=== PATIENT | female | born 1980 | race Caucasian/White ===

== ENCOUNTER → 2016-10-08 | Outpatient (CLI) | payer OTHER ==
--- NOTE | 2016-10-08 18:40 | US ---
EXAMINATION TYPE: US venous doppler duplex LE RT DATE OF EXAM: 10/08/2016 5:57 PM COMPARISON: NONE CLINICAL HISTORY: RLE Pain M79.604. SIDE PERFORMED: Right TECHNIQUE: The lower extremity deep venous system is examined utilizing real time linear array sonog donita with graded compression, doppler sonography and color-flow sonography. VESSELS IMAGED: External Iliac Vein (EIV) Common Femoral Vein Deep Femoral Vein Greater Saphenous Vein * Femoral Vein Popliteal Vein Small Saphenous Vein * Proximal Calf Veins (* superficial vessels) Right Leg: Negative for DVT. In the area of the patient's palpable lumps, redness, and pain there are non-compressible superficial varicose veins with thready flow within. Grayscale, color doppler, spectral doppler imaging performed of the deep veins of the right lower ext remity. There is normal flow, compressibility, vascular waveforms of the right lower extremity. IMPRESSION: No ultrasound evidence for acute DVT in the right lower extremity. Thrombosed superficial varicose veins are felt present.
== END | disposition home or self-care (01) ==
LOC: RADUSMAIN 17:29
PROVIDERS: ATTEND Internal Medicine
DX: I83.811 Varicose veins of right lower extremity with pain (principal)

== ENCOUNTER 2017-09-15 15:53 | Emergency (ER) | payer OTHER ==
--- NOTE | 2017-09-15 18:31 | ED ---
Extremity Problem HPI - General Chief complaint: Extremity Problem,Nontraumatic Stated complaint: rt leg infection Time Seen by Provider: 09/15/17 17:56 Source: patient Mode of arrival: ambulatory Limitations: no limitations - History of Present Illness Initial comments: This is a 36-year-old female past medical history of previous DVT in 2003 in the right leg, vasculitis in the rt LE, gastric bypass surgery who presents today for cc of right calf pain, swelling and erythema. Pt states that thursday night she noticed a red area on the posterior calf, for the past day and a half she stated it seemed as though the area of redness was moving superior toward the right knee and the pain was increasing. She stated it felt similar to when she had a DVT or vasculitis and pt was worried so she presented to the emergency department. Pt does not take any ASA or any anticoagulants. PT denies recent fx or trauma to the right LE, chest pain, cough, dyspnea, dsypnea with exertion,hemoptysis, right calf swelling, coolness of the extremity, parathesias , tingling or loss of sensation of the right LE. Pt presented with VS stable HR 52 bpm and 100% O2 saturation. Patient denies any recent fever, chills, shortness of breath, back pain, abdominal pain, nausea or vomiting, numbness or tingling, dysuria or hematuria, constipation or diarrhea, headaches or visual changes, or any other complaints. - Related Data Home Medications Medication Instructions Recorded Confirmed Amoxic-Pot Clav 875-125Mg 1 tab PO Q12HR 09/15/17 09/15/17 [Augmentin 875-125] Allergies Allergy/AdvReac Type Severity Reaction Status Date / Time No Known Allergies Allergy Verified 09/15/17 19:33 Review of Systems ROS Statement: Those systems with pertinent positive or pertinent negative responses have been documented in the HPI. ROS Other: All systems not noted in ROS Statement are negative. Constitutional: Denies: fever, chills ENT: Denies: throat pain Respiratory: Denies: cough, dyspnea, wheezes, hemoptysis Cardiovascular: Denies: chest pain, palpitations, dyspnea on exertion, orthopnea , edema, syncope Endocrine: Denies: fatigue Gastrointestinal: Denies: abdominal pain, nausea, vomiting, diarrhea, constipation, hematemesis Genitourinary: Denies: urgency, dysuria, frequency Musculoskeletal: Reports: as per HPI, myalgia. Denies: back pain Skin: Reports: as per HPI, change in color Neurological: Denies: headache, weakness, numbness, paresthesias, confusion Past Medical History Past Medical History: No Reported History Additional Past Medical History / Comment(s): DVT 2004. Vasculitis History of Any Multi-Drug Resistant Organisms: None Reported Past Surgical History: Bariatric Surgery, Cholecystectomy Past Anesthesia/Blood Transfusion Reactions: No Reported Reaction Past Psychological History: No Psychological Hx Reported Smoking Status: Never smoker Past Alcohol Use History: None Reported Past Drug Use History: None Reported - Past Family History Father Family Medical History: Hyperlipidemia Additional Family Medical History / Comment(s): constrictive artery disease, colon ca in bladder, Mother Family Medical History: Cancer, Diabetes Mellitus Additional Family Medical History / Comment(s): skin cancer, ischemic bowel r\t scar tissue buildup General Exam - General Exam Comments Initial Comments: General: The patient is awake and alert, in no distress, and does not appear acutely ill. Eye: Pupils are equal, round and reactive to light, extra-ocular movements are intact. No nystagmus. There is normal conjunctiva bilaterally. No signs of icterus. Ears, nose, mouth and throat: There are moist mucous membranes and no oral lesions. Neck: The neck is supple, there is no tenderness or JVD. Cardiovascular: There is a regular rate and rhythm. No murmur, rub or gallop is appreciated. Respiratory: Lungs are clear to auscultation, respirations are non-labored, breath sounds are equal. No wheezes, stridor, rales, or rhonchi. Musculoskeletal: Normal ROM, no tenderness. Strength 5/5. Sensation intact. Pulses equal bilaterally 2+. Neurological: A&O x 3. CN II-XII intact, There are no obvious motor or sensory deficits. Coordination appears grossly intact. Speech is normal. Skin: Skin is warm and dry and no rashes or lesions are noted. Erythematous 12cm area of the posterior right calf. There are many varicose veins of the posterior calves b/l. There is tenderness to palpation over the area of erythema and palpable rope like veins present within the area. Psychiatric: Cooperative, appropriate mood & affect, normal judgment. Limitations: no limitations Course Vital Signs 09/15/17 09/15/17 16:48 19:52 Temperature 98.5 F 96.9 F L Pulse Rate 52 L 59 L Respiratory 16 18 Rate Blood Pressure 111/72 115/54 O2 Sat by Pulse 100 100 Oximetry Medical Decision Making - Medical Decision Making Duplex ultrasound of the right lower extremity was obtained revealing no DVT, however there is superficial venous thrombosis. Case was discussed with Dr. Lockhart. At this time we feel that the pt is stable for discharge with instruction to use OTC NSAIDS/Tylenol as needed for pain and apply warm compresses to area. Pt was instructed to f/u with pcp in 1-2 days. Pt agreed with plan and d/c in stable condition. VS stable. Disposition Clinical Impression: Acute superficial venous thrombosis of right lower extremity Disposition: HOME SELF-CARE Condition: Good Additional Instructions: Please use OTC pain medication as discussed, and apply warm compresses to the area. Please follow-up with family doctor in the next 2 days. Please return to emergency room if the symptoms increase or worsen or for any other concerns. Is patient prescribed a controlled substance at d/c from ED?: No Referrals: Emi Hill MD [Primary Care Provider] - 1-2 days Time of Disposition: 19:43
--- NOTE | 2017-09-15 19:27 | US ---
EXAMINATION TYPE: US venous doppler duplex LE RT DATE OF EXAM: 09/15/2017 7:12 PM COMPARISON: US 2017 CLINICAL HISTORY: Pain; Right medial AK to mid calf skin redness and pain at varicose veins today; pr ior right leg DVT but not on blood thinner SIDE PERFORMED: Right TECHNIQUE: The lower extremity deep venous system is examined utilizing real time linear array sonog donita with graded compression, doppler sonography and color-flow sonography. VESSELS IMAGED: Common Femoral Vein Deep Femoral Vein Greater Saphenous Vein * Femoral Vein Popliteal Vein Small Saphenous Vein * Proximal Calf Veins (* superficial vessels) Right Leg: Negative for DVT; is positive for Superficial Vein Thrombosis posteromedial right calf to above knee at patient's area of symptoms IMPRESSION: There is superficial venous thrombosis in the saphenous vein. No evidence of deep venous thrombosis.
[2017-09-15 19:53] VITALS: BP 115/54; PULSE 59; RESP 18; TEMP 96.9
== END 2017-09-15 19:52 | disposition home or self-care (01) ==
LOC: EC 15:53
DX: I82.811 Embolism and thrombosis of superficial veins of right lower extremity (principal); Z86.718 Personal history of other venous thrombosis and embolism
CPT/HCPCS: 99283

== ENCOUNTER → 2017-09-25 | Outpatient (CLI) | payer OTHER ==
--- NOTE | 2017-09-25 14:03 | US ---
EXAMINATION TYPE: US venous doppler duplex LE RT DATE OF EXAM: 09/25/2017 11:30 AM COMPARISON: 09/15/2017 CLINICAL HISTORY: M79.604 PAIN OF RT LE. Known superficial clot in right leg. Pain worsening SIDE PERFORMED: Right TECHNIQUE: The lower extremity deep venous system is examined utilizing real time linear array sonog donita with graded compression, doppler sonography and color-flow sonography. VESSELS IMAGED: External Iliac Vein (EIV) Common Femoral Vein Deep Femoral Vein Greater Saphenous Vein * Femoral Vein Popliteal Vein Small Saphenous Vein * Proximal Calf Veins (* superficial vessels) Grayscale, color doppler, spectral doppler imaging performed of the deep veins of the right lower ext remity. There is normal flow, compressibility, vascular waveforms. Right Leg: Negative for DVT. Positive for SVT in the right GSV from above the knee to the right mid calf. Appears unchanged from previous exam 09/15/2017. IMPRESSION: 1. No evidence of deep venous thrombosis within the right lower extremity. 2. Redemonstration of superficial venous thrombosis as seen on the prior of 09/15/[address] saphenous vein.
== END | disposition home or self-care (01) ==
LOC: RADUSWWP 11:08
PROVIDERS: ATTEND Internal Medicine
DX: I82.811 Embolism and thrombosis of superficial veins of right lower extremity (principal)

== ENCOUNTER 2018-09-06 07:55 | Emergency (ER) | payer BC, OTHER ==
[2018-09-06] MEDS ORDERED: diphenhydrAMINE 50 MG/ML 1 ML VIAL IVP STA (08:31)
[2018-09-06] MEDS ORDERED: FAMOTIDINE 20 MG/2 ML VIAL IV STA (08:31)
[2018-09-06] MEDS ORDERED: methylPREDNISolone SOD SUCCI 125 MG/2 ML VIAL IV STA (08:31)
--- NOTE | 2018-09-06 08:45 | ED ---
Skin/Abscess/FB HPI - General Chief complaint: Skin/Abscess/Foreign Body Stated complaint: rash Time Seen by Provider: 09/06/18 08:06 Source: patient, RN notes reviewed, old records reviewed Mode of arrival: ambulatory Limitations: no limitations - History of Present Illness Initial comments: Patient is a 29-year-old female process brace arm today with concern for bilateral buttocks. Patient reports that symptoms started on Thursday. She went to her PCP and was placed on Bactrim. She reports that it is not improved since being on the antibiotic for 5 days. She complaint of being pruritic. She denies any fevers or chills. She states today that she was in the shower started feeling her heart was racing somewhat weak and dizzy so she came to the emergency department. Patient states that it feels that her skin is on fire. She denies any associated history of resistant skin infections. She reports she's had this in the past. - Related Data Home Medications Medication Instructions Recorded Confirmed Ergocalciferol [Vitamin D2] 50,000 unit PO Q30D 09/06/18 09/06/18 Sulfamethox-Tmp 800-160Mg [Bactrim 1 tab PO Q12HR 09/06/18 09/06/18 DS 800-160 mg] Previous Rx's Medication Instructions Recorded Famotidine [Pepcid] 40 mg PO BID #12 tab 09/06/18 diphenhydrAMINE [Benadryl] 25 mg PO QID PRN #20 capsule 09/06/18 predniSONE 60 mg PO DIRECTED #18 tab 09/06/18 Allergies Allergy/AdvReac Type Severity Reaction Status Date / Time No Known Allergies Allergy Verified 09/06/18 08:05 Review of Systems ROS Statement: Those systems with pertinent positive or pertinent negative responses have been documented in the HPI. ROS Other: All systems not noted in ROS Statement are negative. Past Medical History Past Medical History: No Reported History Additional Past Medical History / Comment(s): DVT 2003. Vasculitis History of Any Multi-Drug Resistant Organisms: None Reported Past Surgical History: Bariatric Surgery, Cholecystectomy Past Anesthesia/Blood Transfusion Reactions: No Reported Reaction Past Psychological History: No Psychological Hx Reported Smoking Status: Never smoker Past Alcohol Use History: None Reported Past Drug Use History: None Reported - Past Family History Father Family Medical History: Hyperlipidemia Additional Family Medical History / Comment(s): constrictive artery disease, colon ca in bladder, Mother Family Medical History: Cancer, Diabetes Mellitus Additional Family Medical History / Comment(s): skin cancer, ischemic bowel r\t scar tissue buildup General Exam - General Exam Comments Initial Comments: 37-year-old female. Alert and oriented 3. No significant distress. General: Well appearing, well nourished, in no distress. Oriented x 3, normal mood and affect . Ambulating without difficulty. Skin: Good turgor, erythematous large macular area over patient's buttocks and thigh. Hair: Normal texture and distribution. HEENT: Head: Normocephalic, atraumatic, no visible or palpable masses, depressions, or scaring. Eyes: Visual acuity intact, conjunctiva clear, sclera non-icteric, EOM intact, PERRL. Ears: EACs clear, TMs translucent & cone of light visualized. hearing intact. Nose: No external lesions, mucosa non-inflamed, septum and turbinates normal Mouth: Mucous membranes moist, no mucosal lesions. Teeth/Gums: No obvious caries or periodontal disease. No gingival inflammation or significant resorption. Pharynx: Mucosa non-inflamed, no tonsillar hypertrophy or exudate Neck: Supple, without lesions, bruits, or adenopathy, thyroid non-enlarged and non-tender Heart: No cardiomegaly or thrills; regular rate and rhythm, no murmur or gallop Lungs: Clear to auscultation and percussion Abdomen: Bowel sounds normal, no tenderness, organomegaly, masses, or hernia Back: Spine normal without deformity or tenderness, no CVA tenderness Extremities: No amputations or deformities, cyanosis, edema or varicosities, peripheral pulses intact Musculoskeletal: Normal gait and station. No misalignment, asymmetry, crepitation, defects, tenderness, masses, effusions, decreased range of motion, instability, atrophy or abnormal strength or tone in the head, neck, spine, ribs, pelvis or extremities. Neurologic: CN 2-12 normal. Sensation to pain, touch, and proprioception normal. DTRs normal in upper and lower extremities. No pathologic reflexes. Psychiatric: Oriented X3, intact recent and remote memory, judgment and insight, normal mood and affect. Limitations: no limitations Course Vital Signs 09/06/18 07:56 Temperature 98.7 F Pulse Rate 63 Respiratory 16 Rate Blood Pressure 117/54 O2 Sat by Pulse 100 Oximetry Medical Decision Making - Medical Decision Making 2-year-old female presents with a large pruritic rash over her ducts and signs or thighs. Appears over his Patient is sitting. She denies any contacts or exposures. She states this happened once before. She states it seems to be he at rash. Patient was seen by her PCP and was started on Bactrim 5 days ago but the area continues to worsen. She denies any fevers or chills. Patient is having seems to have more of an ALLERGIC reaction type of response causing this rash. Due to the hospital is highly started to check some blood work. Her white blood cell count is normal vital signs are stable. Again I think this is related to ALLERGIC reaction type of rash or contacts or otitis. Patient will be started on steroids Benadryl Pepcid. On reevaluation after seeing those medications to the IV she does have a diminished appearance of her rash. I discussed that she should have close follow-up with her primary care doctor and monitor the area of rash. I discussed she can continue the Bactrim at this time however Patient should be cautious as this is likely on affecting the rash at this time. Patient understands treatment plan will comply. Return parameters were discussed. - Lab Data Result diagrams: 09/06/18 08:44 09/06/18 08:44 Lab Results 09/06/18 09/06/18 Range/Units 08:44 08:44 WBC 6.4 (3.8-10.6) k/uL RBC 4.39 (3.80-5.40) m/uL Hgb 11.4 (11.4-16.0) gm/dL Hct 35.4 (34.0-46.0) % MCV 80.7 (80.0-100.0) fL MCH 25.9 (25.0-35.0) pg MCHC 32.1 (31.0-37.0) g/dL RDW 15.0 (11.5-15.5) % Plt Count 213 (150-450) k/uL Neutrophils % 76 % Lymphocytes % 14 % Monocytes % 4 % Eosinophils % 5 % Basophils % 0 % Neutrophils # 4.9 (1.3-7.7) k/uL Lymphocytes # 0.9 L (1.0-4.8) k/uL Monocytes # 0.3 (0-1.0) k/uL Eosinophils # 0.3 (0-0.7) k/uL Basophils # 0.0 (0-0.2) k/uL Hypochromasia Slight Sodium 138 (137-145) mmol/L Potassium 4.2 (3.5-5.1) mmol/L Chloride 107 (98-107) mmol/L Carbon Dioxide 24 (22-30) mmol/L Anion Gap 7 mmol/L BUN 13 (7-17) mg/dL Creatinine 0.78 (0.52-1.04) mg/dL Est GFR (CKD-EPI)AfAm >90 (>60 ml/min/1.73 sqM) Est GFR (CKD-EPI)NonAf >90 (>60 ml/min/1.73 sqM) Glucose 96 (74-99) mg/dL Calcium 8.8 (8.4-10.2) mg/dL Total Bilirubin 0.8 (0.2-1.3) mg/dL AST 28 (14-36) U/L ALT 28 (9-52) U/L Alkaline Phosphatase 72 (38-126) U/L Total Protein 6.8 (6.3-8.2) g/dL Albumin 3.9 (3.5-5.0) g/dL Disposition Clinical Impression: Rash and nonspecific skin eruption Disposition: HOME SELF-CARE Condition: Good Instructions (If sedation given, give patient instructions): Urticaria (ED) Additional Instructions: Patient advised to continue to use hydrocortisone cream over the area. Take the steroids, Pepcid and Benadryl as prescribed. Patient should've close follow-up with primary care physician. Prescriptions: diphenhydrAMINE [Benadryl] 25 mg PO QID PRN #20 capsule PRN Reason: Itching Famotidine [Pepcid] 40 mg PO BID #12 tab predniSONE 60 mg PO DIRECTED #18 tab Is patient prescribed a controlled substance at d/c from ED?: No Referrals: Emi Hill MD [Primary Care Provider] - 1-2 days Time of Disposition: 10:10
[2018-09-06 09:19] LABS: Basophils % (A) 0 %; Eosinophils # (A) 0.3 k/uL (0-0.7); Eosinophils % (A) 5 %; HCT 35.4 % (34.0-46.0); HGB 11.4 gm/dL (11.4-16.0); Hypochromasia Slight; Lymphocytes # (A) 0.9 k/uL (1.0-4.8); Lymphocytes % (A) 14 %; MCH 25.9 pg (25.0-35.0); MCHC 32.1 g/dL (31.0-37.0); MCV 80.7 fL (80.0-100.0); Mean Platelet Volume 7.7; Monocytes # (A) 0.3 k/uL (0-1.0); Monocytes % (A) 4 %; Neutrophils # (A) 4.9 k/uL (1.3-7.7); Neutrophils % (A) 76 %; Platelet Count 213 k/uL (150-450); RBC 4.39 m/uL (3.80-5.40); WBC 6.4 k/uL (3.8-10.6)
[2018-09-06 09:29] LABS: ALT 28 U/L (9-52); AST 28 U/L (14-36); African American GFR (CKD) >90 (>60 ml/min/1.73 sqM); Albumin 3.9 g/dL (3.5-5.0); Alkaline Phosphatase 72 U/L (38-126); Anion Gap 7 mmol/L; Blood Urea Nitrogen 13 mg/dL (7-17); Calcium 8.8 mg/dL (8.4-10.2); Carbon Dioxide 24 mmol/L (22-30); Chloride 107 mmol/L (98-107); Glucose 96 mg/dL (74-99); Potassium 4.2 mmol/L (3.5-5.1); Sodium 138 mmol/L (137-145); Total Bilirubin 0.8 mg/dL (0.2-1.3); Total Protein 6.8 g/dL (6.3-8.2)
[2018-09-06 10:39] VITALS: BP 106/54; PULSE 56; RESP 18; TEMP 98
== END 2018-09-06 10:38 | disposition home or self-care (01) ==
LOC: EC 07:55
DX: R21 Rash and other nonspecific skin eruption (principal); R42 Dizziness and giddiness; Z86.718 Personal history of other venous thrombosis and embolism; Z98.84 Bariatric surgery status
CPT/HCPCS: 36415; 80053; 85025; 99283; 96374; 96375 ×2; J1200; J2930

== ENCOUNTER → 2018-10-01 | Outpatient (CLI) | payer BC ==
[2018-10-01 14:11] VITALS: BP 107/73; PULSE 51; RESP 16; TEMP 97.8; BMI 34.4
--- NOTE | 2018-10-01 15:12 | P.GSHP ---
History of Present Illness H&P Date: 10/01/18 Chief Complaint: Right nipple discharge The patient is a 37-year-old white female with a complaint of one month right nipple discharge. The color was black in nature. The patient has no history of any trauma or infection in her breast. She does not feel any masses or lumps in her breasts. She has no nipple discharge on the left side. Cystoscopy never had anything like this in the past. She had a bilateral mammogram performed on 09-17-18, an ultrasound was recommended. She has been done on the results are pending. Mammogram did not show any specific lesions of concern. The discharge is nonspontaneous. She did have her nipples pierced in her mid 20s and she noted for discharge when she was cleaning the area of the piercing. She drinks diet Coke daily. She does not drink any tea or coffee. She does not smoke and is not exposed to secondhand smoke. She is chocolate occasionally. Discharge is not cyclical related to her period. Family history: maternal grandfather: pancreatic cancer mother: skin cancer brother: skin cancer father: colon cancer into bladder Hormonal history: Menarche: 10 , 2 miscarrages, breast fed: yes, first born at 30 BCP: no hormones: no Past surgical history: 1. gastric bypass lost 160 pounds 2. Cholecystectomy 3. Stent following cholecystectomy for bile duct leak, stint removed in 2016 this was done via surgery secondary to difficulty removing it because of the gastric bypass Medical history: 1.none Social History: smoke: none alcohol: occasional drugs: none - Constitutional Constitutional: Reports sweats - EENT Eyes: denies blurred vision, denies pain Ears: right: decreased hearing, bilateral: tinnitus Ears, nose, mouth and throat: Reports headache, Reports sore throat - Breasts Breasts: bilateral: as per HPI - Cardiovascular Cardiovascular: Denies chest pain, Denies shortness of breath - Respiratory Respiratory: Denies cough, Denies 7 - Gastrointestinal Gastrointestinal: Reports as per HPI - Genitourinary (Female) Genitourinary: Denies dysuria, Denies hematuria - Menstruation Menstruation: Reports period normal - Musculoskeletal Musculoskeletal: Denies myalgias - Integumentary Comment: eczema Integumentary: Reports rash - Neurological Neurological: Denies numbness, Denies weakness - Psychiatric Psychiatric: Denies anxiety, Denies depression - Endocrine Endocrine: Denies fatigue, Denies weight change - Hematologic/Lymphatic Comment: none, phlebitis in her right leg last summer, was taking 81 mg aspirin at that time - Allergic/Immunologic Allergic/Immunologic: Reports seasonal allergies Past Medical History Past Medical History: No Reported History Additional Past Medical History / Comment(s): DVT 2003. Vasculitis History of Any Multi-Drug Resistant Organisms: None Reported Past Surgical History: Bariatric Surgery, Cholecystectomy Past Anesthesia/Blood Transfusion Reactions: No Reported Reaction Past Psychological History: No Psychological Hx Reported Smoking Status: Never smoker Past Alcohol Use History: None Reported Past Drug Use History: None Reported - Past Family History Father Family Medical History: Hyperlipidemia Additional Family Medical History / Comment(s): constrictive artery disease, colon ca in bladder, Mother Family Medical History: Cancer, Diabetes Mellitus Additional Family Medical History / Comment(s): skin cancer, ischemic bowel r\t scar tissue buildup Medications and Allergies Home Medications Medication Instructions Recorded Confirmed Type Ergocalciferol [Vitamin D2] 50,000 unit PO Q30D 09/06/18 10/01/18 History Amoxicillin 875 mg PO Q12HR 10/01/18 10/01/18 History Allergies Allergy/AdvReac Type Severity Reaction Status Date / Time No Known Allergies Allergy Verified 10/01/18 14:04 Surgical - Exam Vital Signs Temp Pulse Resp BP Pulse Ox 97.8 F 51 L 16 107/73 100 10/01/18 14:06 10/01/18 14:06 10/01/18 14:06 10/01/18 14:06 10/01/18 14:06 - General well developed, well nourished, no distress - Eyes normal ocular movement - ENT no hearing loss, no congestion - Neck no masses, trachea midline - Respiratory normal respiratory effort, clear to auscultation - Cardiovascular Rhythm: regular Heart Sounds: normal: S1, S2 - Abdomen Abdomen: soft, non tender, no guarding, no rigid, no rebound - Integumentary normal turgor - Neurologic no disoriented, no combative - Musculoskeletal normal gait, normal posture - Psychiatric oriented to time, oriented to person, oriented to place, speech is normal, memory intact Breast examination: Right breast: Multi-positional exam fibrocystic breast changes patient has nipple discharge at the 12 o'clock position, there were 2 sites of discharge 1 is clear and one is bluish green guaiac of the sinus is negative for blood Right axilla: No adenopathy of concern Left breast: Multi-positional exam fibrocystic changes no dominant masses or nodules of concern no nipple discharge Left axilla: No adenopathy of concern Patient has healed scars from bilateral nipple piercings in the past Results Mammogram results reviewed, ultrasound results pending Assessment and Plan Assessment: Impression: 1. Nipple discharge right breast, believed to be fibrocystic the areas guaiac and negative 2. Fibrocystic breast changes 3. Family history of cancer 4. Patient status post gastric bypass surgery has lost 160 pounds 5. Some persistent irritation at bilateral nipple piercing sites Plan: 1. Continue present care of nipple piercing sites 2. believe the discharge is fibrocystic in nature will encourage the patient to decrease caffeine intake 3. Obtain ultrasound report from the right breast 4. follow up in 4 months Cc: Dr. Hill
== END | disposition home or self-care (01) ==
LOC: WWCWWP 13:55
PROVIDERS: ATTEND Surgery
DX: Z53.9 Procedure and treatment not carried out, unspecified reason (principal)

== ENCOUNTER → 2019-10-21 | Outpatient (CLI) | payer BC ==
[2019-10-21 10:07] VITALS: BP 117/79; PULSE 58; RESP 18; TEMP 98.8
--- NOTE | 2019-10-21 10:33 | P.PN ---
Subjective Progress Note Date: 10/21/19 Principal diagnosis: nipple discharge The patient is a 38-year-old white female with a complaint of one month right nipple discharge when seen initially on . The color was black in nature. The patient had no history of any trauma or infection in her breast. She did not feel any masses or lumps in her breasts. She had no nipple discharge on the left side. She had never had anything like this in the past. She had a bilateral mammogram performed on 09-17-18, an ultrasound was recommended. Mammogram did not show any specific lesions of concern. The discharge is nonspontaneous, only with squeezing. She did have her nipples pierced in her mid 20s and she noted for discharge when she was cleaning the area of the piercing. Approximately year ago she was drinking Coke daily and she decreased the amount of caffeine intake. Since then she has noted decreased drainage but it is still present. Now it appears to be from a different site at the nipple areolar complex and is changed in color. There is red discharge from the bottom and black discharge comes out at the top. She had a bilateral mammogram performed on . This was benign however secondary to the discharge in the right breast and ultrasound was performed which was also felt to be benign BIRADS 2 and repeat radiographs in 1 year were recommended. She drinks diet Coke daily. She does not drink any tea or coffee. Drinks one a day as opposed to drinking all day long Nicotine: Negative Chocolate: Occasional Discharge is not cyclical related to her period. Procedure post: Negative Hormones: Negative Family history: maternal grandfather: pancreatic cancer mother: skin cancer brother: skin cancer father: colon cancer into bladder Hormonal history: Menarche: 10 , 2 miscarrages, breast fed: yes, first born at 30 BCP: no hormones: no Past surgical history: 1. gastric bypass lost 160 pounds 2. Cholecystectomy 3. Stent following cholecystectomy for bile duct leak, stint removed in 2016 this was done via surgery secondary to difficulty removing it because of the gastric bypass Medical history: 1.none Social History: smoke: none alcohol: occasional drugs: none - Constitutional Constitutional: Reports sweats - EENT Eyes: denies blurred vision, denies pain Ears: right: decreased hearing, bilateral: tinnitus Ears, nose, mouth and throat: Reports migraine headaches, Reports sore throat - Breasts Breasts: bilateral: as per HPI - Cardiovascular Cardiovascular: Denies chest pain, Denies shortness of breath - Respiratory Respiratory: Denies cough, - Gastrointestinal Gastrointestinal: Reports as per HPI, diahrea - Genitourinary (Female) Genitourinary: Denies dysuria, Denies hematuria - Menstruation Menstruation: Reports period normal - Musculoskeletal Musculoskeletal: Denies myalgias - Integumentary Comment: Integumentary: Reports rash at times from detergents - Neurological Neurological: Denies numbness, Denies weakness - Psychiatric Psychiatric: Denies anxiety, Denies depression - Endocrine Endocrine: Denies fatigue, Denies weight change - Hematologic/Lymphatic Comment: none, phlebitis in her right leg last summer, was taking 81 mg aspirin at that time - Allergic/Immunologic Allergic/Immunologic: Reports seasonal allergies Objective - Vital Signs Vital signs: Vital Signs Temp 98.8 F 10/21/19 10:01 Pulse 58 L 10/21/19 10:01 Resp 18 10/21/19 10:01 BP 117/79 10/21/19 10:01 Pulse Ox 100 10/21/19 10:01 Intake & Output 10/20/19 10/21/19 10/21/19 18:59 06:59 18:59 Weight 105.233 kg - Exam BMI 34.3 - Constitutional General appearance: Present: obese - EENT Eyes: Present: EOMI ENT: Present: hearing grossly normal - Neck Neck: Present: normal ROM - Respiratory Respiratory: bilateral: CTA - Cardiovascular Rhythm: regular Heart sounds: normal: S1, S2 - Gastrointestinal General gastrointestinal: Present: normal bowel sounds, soft - Integumentary Integumentary: Present: normal turgor - Musculoskeletal Musculoskeletal: Present: gait normal - Psychiatric Psychiatric: Present: A&O x's 3, appropriate affect, intact judgment & insight - Additional findings Additional findings: breast exam: BRA 38C inspection: Bilateral grade 3 ptosis Right breast: Multi-positional exam fibrocystic changes, the patient has discharge from the 12:00 nipple duct region as well as the 7:00 duct region that at the 12:00 region is black in nature and at the 7:00 is red Right atrial: No axillary adenopathy of concern Left breast: Multi-positional exam no dominant masses or nodules of concern fibrocystic changes Left axilla: No adenopathy of concern guiac testing of the discharge from the right breast at 12:00 was positive for blood, at 7:00 there was not enough fluid to obtain to do a test although it appeared to be red in nature Assessment and Plan Assessment: Impression: 1. Bloody nipple discharge right breast at 2 sites 12:00 and 7:00 2. Migraine headaches 3. Patient does drink caffeine Plan: 1. Duct exploration right breast of 2 sites 12:00 and 7:00 Risks and benefits of duct exploration discussed with the patient. This may well still be fibrocystic disease however it is guaiac positive. The patient understands and wishes to proceed. Cc: Dr. Hill encounter 20 minutes, > 50% of time in planning and counselling
== END | disposition home or self-care (01) ==
LOC: WWCWWP 09:56
PROVIDERS: ATTEND Surgery
DX: Z53.9 Procedure and treatment not carried out, unspecified reason (principal)

== ENCOUNTER → 2019-11-25 | Outpatient (CLI) | payer BC ==
--- NOTE | 2019-11-25 12:08 | MM ---
Reason for exam: additional evaluation requested from prior study. Last mammogram was performed 1 year and 2 months ago. History: Patient had first child at age 30. Physical Findings: Nurse did not find any significant physical abnormalities on exam. MG 3D Diag Mammo W/Cad MIGUEL Bilateral CC and MLO view(s) were taken. Prior study comparison: September 17, 2018, mammogram. The breast tissue is heterogeneously dense. This may lower the sensitivity of mammography. Focal asymmetry left upper outer middle breast. These results were verbally communicated with the patient and result sheet given to the patient on 11/25/19. ASSESSMENT: Incomplete: need additional imaging evaluation, BI-RAD 0 RECOMMENDATION: Ultrasound of the right breast.
--- NOTE | 2019-11-25 12:09 | USB ---
Reason for exam: additional evaluation requested from abnormal screening. History: Patient had first child at age 30. US Breast RT Right complete breast ultrasound includes all four quadrants, the retroareolar region and axilla. Finding demonstrates normal appearing ducts. No obvious filling defects. These results were verbally communicated with the patient and result sheet given to the patient on 11/25/19. ASSESSMENT: Benign, BI-RAD 2 RECOMMENDATION: Follow-up diagnostic mammogram of both breasts in 1 year. Manage patient on a clinical basis.
== END | disposition home or self-care (01) ==
LOC: RADMAMWWP 10:32
PROVIDERS: ATTEND Surgery
DX: N64.52 Nipple discharge (principal)
CPT/HCPCS: 77062; 77066

== ENCOUNTER → 2019-12-08 | Outpatient (CLI) | payer BC ==
[2019-12-08 11:27] VITALS: BP 119/77; PULSE 50; RESP 12; TEMP 98.6
--- NOTE | 2019-12-08 12:03 | P.PN ---
Subjective Progress Note Date: 12/08/19 Principal diagnosis: bloody nipple discharge nipple discharge The patient is a 38-year-old white female with a complaint of 1 year right nipple discharge when seen initially on . The color was black in nature. The patient had no history of any trauma or infection in her breast. She did not feel any masses or lumps in her breasts. She had no nipple discharge on the left side. She had never had anything like this in the past. She had a bilateral mammogram on 920 520 as well as a right breast ultrasound. These were benign BIRADS 2 and repeat bilateral mammogram in 1 year was recommended. Mammogram did not show any specific lesions of concern. The discharge is nonspontaneous, only with squeezing. She did have her nipples pierced in her mid 20s and she noted for discharge when she was cleaning the area of the piercing. Approximately year ago she was drinking Coke daily and she decreased the amount of caffeine intake. Does not drink any at this time. Since then she has noted decreased drainage but it is still present. Now it appears to be from a different site at the nipple areolar complex and is changed in color. There is red discharge from the bottom and black discharge comes out at the top. She had guiac testing of the 12:00 nipple discharge on the right on her last visit which was positive, and 7:00 there was not enough fluid to test, at this time she states is nothing coming out at the bottom. She drinks diet Coke daily. She does not drink any tea or coffee. Drinks one a day as opposed to drinking all day long Nicotine: Negative Chocolate: Occasional Discharge is not cyclical related to her period. Procedure post: Negative Hormones: Negative Family history: maternal grandfather: pancreatic cancer mother: skin cancer brother: skin cancer father: colon cancer into bladder Hormonal history: Menarche: 10 , 2 miscarrages, breast fed: yes, first born at 30 BCP: no hormones: no Past surgical history: 1. gastric bypass lost 160 pounds 2. Cholecystectomy 3. Stent following cholecystectomy for bile duct leak, stint removed in 2016 this was done via surgery secondary to difficulty removing it because of the gastric bypass Medical history: 1. patient recently started on vitamin D Social History: smoke: none alcohol: occasional drugs: none - Constitutional Constitutional: Reports sweats - EENT Eyes: denies blurred vision, denies pain Ears: right: decreased hearing, bilateral: tinnitus Ears, nose, mouth and throat: Reports migraine headaches, Reports sore throat - Breasts Breasts: bilateral: as per HPI - Cardiovascular Cardiovascular: Denies chest pain, Denies shortness of breath - Respiratory Respiratory: Denies cough, - Gastrointestinal Gastrointestinal: Reports as per HPI, diarrhea - Genitourinary (Female) Genitourinary: Denies dysuria, Denies hematuria - Menstruation Menstruation: Reports period normal - Musculoskeletal Musculoskeletal: Denies myalgias - Integumentary Comment: Integumentary: Reports rash at times from detergents - Neurological Neurological: Denies numbness, Denies weakness - Psychiatric Psychiatric: Denies anxiety, Denies depression - Endocrine Endocrine: Denies fatigue, Denies weight change - Hematologic/Lymphatic Comment: none, phlebitis in her right leg last summer, was taking 81 mg aspirin at that time - Allergic/Immunologic Allergic/Immunologic: Reports seasonal allergies Objective - Vital Signs Vital signs: Vital Signs Temp 98.6 F 12/08/19 11:19 Pulse 50 L 12/08/19 11:19 Resp 12 12/08/19 11:19 BP 119/77 12/08/19 11:19 Pulse Ox 100 12/08/19 11:19 Intake & Output 12/07/19 12/08/19 12/08/19 18:59 06:59 18:59 Weight 108.862 kg - Exam BMI 34.4 - Constitutional General appearance: Present: average body habitus - EENT Eyes: Present: EOMI ENT: Present: hearing grossly normal - Neck Neck: Present: normal ROM - Respiratory Respiratory: bilateral: CTA - Cardiovascular Rhythm: regular Heart sounds: normal: S1, S2 - Gastrointestinal General gastrointestinal: Present: normal bowel sounds, soft - Integumentary Integumentary: Present: normal turgor - Musculoskeletal Musculoskeletal: Present: gait normal - Psychiatric Psychiatric: Present: A&O x's 3, appropriate affect, intact judgment & insight - Additional findings Additional findings: breast exam: BRA 38 C inspection:bilateral grade 3 ptosis palpation: right breast: Multi-positional exam fibrocystic changes, patient has discharge from the 12:00 nipple duct region; guaiac was done of this and it appears to be blue/green in nature Right axilla: No adenopathy of concern Left breast: Multi-positional exam a dominant masses or nodules of concern fibrocystic changes Left axilla: No adenopathy of concern Assessment and Plan Assessment: Impression: Impression: 1. Bloody nipple discharge right breast at 12:00 site 2. Migraine headaches Plan: 1. Duct exploration right breast at 12:00 at this time she is not having any discharge at the 7 o'clock position Risk and benefits of duct exploration were discussed with the patient. This may well be fibrocystic disease however it was felt to be guaiac positive on examination. The patient understands and wishes to proceed. Cc: Dr. Hill Encounter 15 minutes > 50% of time on planning and counselling
== END | disposition home or self-care (01) ==
LOC: WWCWWP 10:44
PROVIDERS: ATTEND Surgery
DX: Z53.9 Procedure and treatment not carried out, unspecified reason (principal)

== ENCOUNTER → 2020-02-03 | Outpatient (CLI) | payer BC ==
[2020-02-03 11:15] VITALS: BP 109/74; PULSE 51; RESP 18; TEMP 98.1
--- NOTE | 2020-02-03 11:36 | P.PN ---
Subjective Progress Note Date: 02/03/20 Principal diagnosis: bloody nipple discharge bloody nipple discharge nipple discharge The patient is a 38-year-old white female with a complaint of 1 year right nipple discharge when seen initially on . The color was black in nature. The patient had no history of any trauma or infection in her breast. She did not feel any masses or lumps in her breasts. She had no nipple discharge on the left side. She had never had anything like this in the past. She had a b ilateral mammogram on as well as a right breast ultrasound. These were benign BIRADS 2 and repeat bilateral mammogram in 1 year was recommended. Mammogram did not show any specific lesions of concern. The discharge is nonspontaneous, only with squeezing. She did have her nipples pierced in her mid 20s and she noted for discharge when she was cleaning the area of the piercing. Approximately year ago she was drinking Coke daily and she decreased the amount of caffeine intake. Does not drink any at this time. Since then she has noted decreased drainage but it is still present. Now it appears to be from a different site at the nipple areolar complex and is changed in color. There is red discharge from the bottom and black discharge comes out at the top. She had guiac testing of the 12:00 nipple discharge on the right on her last visit which was positive, and 7:00 there was not enough fluid to test, at this time she states is nothing coming out at the bottom. She drinks diet Coke daily. She does not drink any tea or coffee. Drinks one a day as opposed to drinking all day long Nicotine: Negative Chocolate: Occasional Discharge is not cyclical related to her period. Procedure post: Negative Hormones: Negative Family history: maternal grandfather: pancreatic cancer mother: skin cancer brother: skin cancer father: colon cancer into bladder Hormonal history: Menarche: 10 , 2 miscarrages, breast fed: yes, first born at 30 BCP: no hormones: no Past surgical history: 1. gastric bypass lost 160 pounds 2. Cholecystectomy 3. Stent following cholecystectomy for bile duct leak, stint removed in 2016 this was done via surgery secondary to difficulty removing it because of the gastric bypass Medical history: 1. patient recently started on vitamin D Social History: smoke: none alcohol: occasional drugs: none - Constitutional Constitutional: Reports sweats - EENT Eyes: denies blurred vision, denies pain Ears: right: decreased hearing, bilateral: tinnitus Ears, nose, mouth and throat: Reports migraine headaches, Reports sore throat - Breasts Breasts: bilateral: as per HPI - Cardiovascular Cardiovascular: Denies chest pain, Denies shortness of breath - Respiratory Respiratory: Denies cough, - Gastrointestinal Gastrointestinal: Reports as per HPI, diarrhea - Genitourinary (Female) Genitourinary: Denies dysuria, Denies hematuria - Menstruation Menstruation: Reports period normal - Musculoskeletal Musculoskeletal: Denies myalgias - Integumentary Comment: Integumentary: Reports rash at times from detergents - Neurological Neurological: Denies numbness, Denies weakness - Psychiatric Psychiatric: Denies anxiety, Denies depression - Endocrine Endocrine: Denies fatigue, Denies weight change - Hematologic/Lymphatic Comment: none, phlebitis in her right leg last summer, was taking 81 mg aspirin at that time - Allergic/Immunologic Allergic/Immunologic: Reports seasonal allergies Objective - Vital Signs Vital signs: Intake & Output 02/02/20 02/03/20 02/03/20 18:59 06:59 18:59 Weight 99.79 kg - Exam BMI 31.6 - Constitutional General appearance: Present: average body habitus - EENT Eyes: Present: EOMI ENT: Present: hearing grossly normal - Neck Neck: Present: normal ROM - Respiratory Respiratory: bilateral: CTA - Cardiovascular Rhythm: regular Heart sounds: normal: S1, S2 - Gastrointestinal General gastrointestinal: Present: normal bowel sounds, soft - Integumentary Integumentary: Present: normal turgor - Musculoskeletal Musculoskeletal: Present: gait normal - Psychiatric Psychiatric: Present: A&O x's 3, appropriate affect, intact judgment & insight - Additional findings Additional findings: Breast exam: Bra 38C inspection: bilateral grade 3 ptosis palpation: right breast: Multiple positional exam no dominant masses or nodules of concern, there is discharge at the 12 o'clock position which is dark in nature and guaiac positive Right axilla: No adenopathy of concern Left breast: Multiple positional exam no dominant masses or nodules of concern Left axilla: No adenopathy of concern On inspection the right nipple areolar complex is grade 3 ptosis but higher than the left complex. She and her understand this and despite this would likely suture to be done via mastopexy incision. Assessment and Plan Assessment: Impression: 1. Bloody nipple discharge right breast 12:00 2. Recent bilateral mammogram on 920 520 resulted in right breast ultrasound which was benign BIRADS 2 no lesions of concern were noted in either breast Plan: 1. Right breast duct exploration, this will be done via a crescent mastopexy incision Risks and benefits of the procedure were discussed with the patient. Risks include but are not limited to bleeding, infection, reaction to the anesthetic. There will be asymmetry between in the periareolar location on the right and left breasts. The patient and her understand this and wish to proceed with a crescent mastopexy incision. Additionally the understand that insurance may or may not cover the mastopexy portion of the procedure. CC: DR. Hill encounter 30 minutes,> 50% of tiem in planning and counselling
== END | disposition home or self-care (01) ==
LOC: WWCWWP 11:02
PROVIDERS: ATTEND Surgery
DX: Z53.9 Procedure and treatment not carried out, unspecified reason (principal)

== ENCOUNTER 2020-02-07 09:09 | Day surgery (SDC) | payer BC ==
[2020-02-02 15:54] VITALS: BMI 31.5
[~2020-02-07 09:09] MED LIST: DEXAMETHASONE SOD PHOSPHATE 4 MG/ML 1 ML VIAL IV ONE; HEPARIN SODIUM,PORCINE 5,000 UNIT/ML 1 ML VIAL SQ PRN; LACTATED RINGERS 1,000 ML IV SCH; LIDOCAINE 1% (10MG/ML) FOR IV START INTRADERMA PRN; Pre Op ABX Message 1 EACH MISC MISCELLANE ONE; SCOPOLAMINE 1.5MG/72HR PATCH TRANSDERM ONE
[2020-02-07] MEDS: ONDANSETRON 4 MG/2 ML VIAL IVP ONE ×2 (10:12→12:52)
[2020-02-07 10:14] LABS: Glucose,Whole Blood 76 mg/dL (75-99)
[2020-02-07] MEDS ORDERED: GLYCOPYRROLATE 0.2 MG/ML 2 ML VIAL ONE (10:51)
[2020-02-07] MEDS ORDERED: MIDAZOLAM 2 MG/2 ML VIAL ONE (10:51)
[2020-02-07] MEDS ORDERED: SUCCINYLCHOLINE CHLORIDE 100 MG/5 ML SYR IV ONE (10:51)
[2020-02-07] MEDS ORDERED: PHENYLEPHRINE 10 MG/ML VIAL ONE (10:51)
[2020-02-07] MEDS ORDERED: HYDROmorphone (PF) 1 MG/ML ONE (10:51)
[2020-02-07] MEDS ORDERED: fentaNYL (PF) 50 MCG/ML 2 ML AMP ONE (10:51)
[2020-02-07] MEDS ORDERED: PROPOFOL 10 MG/ML 20 ML VIAL IV ONE (10:51)
[2020-02-07] MEDS ORDERED: LIDOCAINE 1% INJ 10MG/ML (20 ML MDV) ONE (10:51)
--- NOTE | 2020-02-07 12:15 | P.OP ---
Date of Procedure: 02/07/20 Preoperative Diagnosis: Right breast bloody nipple discharge Postoperative Diagnosis: Same Procedure(s) Performed: duct excision via a mastopexy incision Anesthesia: EARNESTINE Surgeon: Margaret North Estimated Blood Loss (ml): 5 IV fluids (ml): 650 Pathology: other (breast tissue) Condition: stable Disposition: same day Indications for Procedure: bloody nipple discharge. ptosis grade 3, left nipple lower than right nipple Operative Findings: Dilated ducts Description of Procedure: Wanda is a 39 -year-old female who presented with bloody nipple discharge at the 12 o'clock position of the right breast. Additionally she had bilateral grade 3 ptosis, despite this the right nipple areolar complex was slightly higher than that on the left. It was recommended she undergo a duct exploration and she wished to have this done via mastopexy incision. She understood the risks of the procedure as well as the fact that the right nipple areolar complex would be even higher than the left. Following induction of anesthesia, the right breast was prepped and draped in a sterile fashion. In the preoperative area prior to coming to the operating room markings were placed for the incisions. The right areolar was to be raised approximately 1-1/2 cm. This placed the nipple near the level of the inferior mammary ridge. In the operating room after induction of general anest hesia the breast was prepped and draped in a sterile fashion. A crescent of skin above the areolar complex was removed by de-epithelializing the area. After this had been accomplished the parenchyma of the breast tissue was entered through this crescent. A dilated duct was identified near the 12 o'clock position which followed more laterally towards the 11 o'clock position. A core of tissue was removed down to the area of the pectoralis muscle. The cavity was marked with titanium clips. The specimen was painted for orientation. After being assured that hemostasis was obtained Surgicel in powder form was placed. The deep tissues were closed using 3-0 Vicryl suture. The skin was reapproximated using 3-0 Vicryl subcutaneous sutures, followed by a 4-0 Monocryl subcuticular suture. This was followed by several interrupted nylon skin sutures. The patient tolerated the procedure in stable condition. All instrument and sponge counts were correct at the end of the case.
--- NOTE | 2020-02-07 12:17 | P.DS ---
Providers Attending physician: Margaret North Primary care physician: Emi Hill Plan - Discharge Summary Discharge Rx Participant: No New Discharge Prescriptions: No Action Ergocalciferol [Vitamin D2] 50,000 unit PO Q30D Discharge Medication List Ergocalciferol [Vitamin D2] 50,000 unit PO Q30D 12/08/19 [History] Follow up Appointment(s)/Referral(s): Margaret North MD [STAFF PHYSICIAN] - 1 Week Activity/Diet/Wound Care/Special Instructions: Do not drive for 24 hours after discharge, do not drive if taking narcotic pain medication Wear bra at all times May shower after 48 hours Discharge Disposition: HOME SELF-CARE
[2020-02-07 12:21] VITALS: TEMP 97.8
[2020-02-07] MEDS: HYDROmorphone 0.5 MG/0.5 ML SYRINGE IVP PRN ×2 (12:38→12:51)
[2020-02-07 13:19] LABS: Glucose,Whole Blood 85 mg/dL (75-99)
[2020-02-07] MEDS ORDERED: HYDROcodone/APAP 5-325MG 1 EACH TAB ONE (13:55)
[2020-02-07] MEDS ORDERED: HYDROcodone/APAP 5-325MG 1 EACH TAB PO ONE (13:56)
[2020-02-07 14:39] VITALS: BP 128/80; PULSE 55; RESP 16
== END 2020-02-07 15:23 | disposition home or self-care (01) ==
LOC: OR 09:09
PROVIDERS: ATTEND Surgery
DX: N64.52 Nipple discharge (principal); N60.31 Fibrosclerosis of right breast; N60.81 Other benign mammary dysplasias of right breast; N64.81 Ptosis of breast; Z90.49 Acquired absence of other specified parts of digestive tract; Z98.890 Other specified postprocedural states; Z98.84 Bariatric surgery status; Z80.0 Family history of malignant neoplasm of digestive organs; Z80.52 Family history of malignant neoplasm of bladder; Z80.8 Family history of malignant neoplasm of other organs or systems
CPT/HCPCS: 81025; 88305; 19110; J2250; J1644; J1100; J2370; J2405; J2001; J3010; J1170 ×2; J0330; J2704; 88307

== ENCOUNTER → 2020-02-16 | Outpatient (CLI) | payer BC ==
--- NOTE | 2020-02-16 16:51 | P.PN ---
Progress Note - Text Progress Note Date: 02/16/20 Wanda is a 39 year [place] [address]. Pathology revealed fibrocystic breast changes. The patient post procedure is doing well. Lungs: clear heart: S1 check S2 check, regular rate and rhythm incision: clean and dry, mild amount of skin sloughing at the 12 o'clock position and no evidence of infection Impression: 1. Pathology fibrocystic breast changes 2. Asymmetry of the breast related to procedure to rule out cancer Plan: 1. Repeat right breast mammogram in 6 months with physician exam at that time 2. Patient will consider if she would like to have a symmetry procedure done on the contralateral breast. CC: Dr. Hill
[2020-02-17 08:21] VITALS: BP 106/70; PULSE 91; RESP 18; TEMP 98.1
== END | disposition home or self-care (01) ==
LOC: WWCWWP 16:15
PROVIDERS: ATTEND Surgery
DX: Z53.9 Procedure and treatment not carried out, unspecified reason (principal)

== ENCOUNTER → 2020-08-24 | Outpatient (CLI) | payer BC ==
--- NOTE | 2020-08-24 14:46 | MM ---
Reason for exam: follow-up at short interval from prior study. Last mammogram was performed 9 months ago. History: Patient had first child at age 30. Physical Findings: Nurse did not find any significant physical abnormalities on exam. MG 3D Diag Mammo W/Cad RT CC and MLO view(s) were taken of the right breast. Prior study comparison: November 25, 2019, bilateral MG 3d diag mammo w/cad MIGUEL. September 17, 2018, mammogram. There are scattered fibroglandular densities. Right post operative change. These results were verbally communicated with the patient and result sheet given to the patient on 08/24/20. ASSESSMENT: Benign, BI-RAD 2 RECOMMENDATION: Routine screening mammogram of both breasts in 3 months. Back on schedule for October 2020.
== END | disposition home or self-care (01) ==
LOC: RADMAMWWP 12:57
PROVIDERS: ATTEND Surgery
DX: N64.89 Other specified disorders of breast (principal)
CPT/HCPCS: 77061; 77065

== ENCOUNTER → 2020-09-06 | Outpatient (CLI) | payer BC ==
[2020-09-06 16:19] VITALS: BP 115/72; PULSE 64; RESP 18; TEMP 98.5
--- NOTE | 2020-09-06 16:28 | P.PN ---
Subjective Progress Note Date: 09/06/20 Principal diagnosis: right breast duct exploration bloody nipple discharge Wanda is a 39-year-old [place] [address] bloody nipple discharge. Pathology revealed fibrocystic breast changes. The patient is doing well at this time his the nipple discharges.. [place] [address] which was benign BIRADS 2. She is recommended to undergo bilateral mammogram of both breasts in 3 months. She does have asymmetry of the nipple areolar complexes with the right being higher than the left secondary to her duct exploration. This makes it difficult for her to find close to fit well and causes anxiety for her. She drinks diet Coke daily. She does not drink any tea or coffee. Drinks one a day as opposed to drinking all day long Nicotine: Negative Chocolate: Occasional Discharge is not cyclical related to her period. Procedure post: Negative Hormones: Negative Family history: maternal grandfather: pancreatic cancer mother: skin cancer brother: skin cancer father: colon cancer into bladder Hormonal history: Menarche: 10 , 2 miscarrages, breast fed: yes, first born at 30 BCP: no hormones: no Past surgical history: 1. gastric bypass lost 160 pounds 2. Cholecystectomy 3. Stent following cholecystectomy for bile duct leak, stint removed in 2016 this was done via surgery secondary to difficulty removing it because of the gastric bypass 4. right breast duct exploration Medical history: 1. patient recently started on vitamin D Social History: smoke: none alcohol: occasional drugs: none - Constitutional Constitutional: Reports sweats - EENT Eyes: denies blurred vision, denies pain Ears: right: decreased hearing, bilateral: tinnitus Ears, nose, mouth and throat: Reports migraine headaches, Reports sore throat - Breasts Breasts: bilateral: as per HPI - Cardiovascular Cardiovascular: Denies chest pain, Denies shortness of breath - Respiratory Respiratory: Denies cough, - Gastrointestinal Gastrointestinal: Reports as per HPI, diarrhea - Genitourinary (Female) Genitourinary: Denies dysuria, Denies hematuria - Menstruation Menstruation: Reports period normal - Musculoskeletal Musculoskeletal: Denies myalgias - Integumentary Comment: Integumentary: Reports rash at times from detergents - Neurological Neurological: Denies numbness, Denies weakness - Psychiatric Psychiatric: Denies anxiety, Denies depression - Endocrine Endocrine: Denies fatigue, Denies weight change - Hematologic/Lymphatic Comment: none, phlebitis in her right leg last summer, was taking 81 mg aspirin at that time - Allergic/Immunologic Allergic/Immunologic: Reports seasonal allergies Objective - Vital Signs Vital signs: Intake & Output 09/05/20 09/06/20 09/06/20 18:59 06:59 18:59 Weight 108.862 kg - Exam BMI 34.4 - Constitutional General appearance: Present: cooperative - EENT Eyes: Present: EOMI ENT: Present: hearing grossly normal - Neck Neck: Present: normal ROM - Respiratory Respiratory: bilateral: CTA - Cardiovascular Heart sounds: normal: S1, S2 - Integumentary Integumentary: Present: normal turgor - Musculoskeletal Musculoskeletal: Present: gait normal - Psychiatric Psychiatric: Present: A&O x's 3, appropriate affect, intact judgment & insight - Additional findings Additional findings: Breast exam: BRA: 38C inspection: Asymmetry of the nipple areolar location secondary to right duct exploration with the right nipple areolar complex being approximately 3 cm higher than the left Palpation: Right breast: Multiple positional exam no dominant masses or nodules of concern Right axilla: No adenopathy of concern Left breast: Multi-positional exam fibrocystic changes no dominant masses or not is of concern Left axilla: No adenopathy of concern On the right posterior shoulder A area of her bra strap is approximately a 3 x 2 cm lipomatous like lesion which has increased in size Assessment and Plan Assessment: Impression: 1. Fibrocystic breast changes 2. Asymmetry of the nipple areolar complexes secondary to necessary duct exploration 3. Right posterior shoulder Bra strap line soft tissue mass Plan: 1. Mastopexy 2. Resection of soft tissue mass right posterior shoulder area 3. Bilateral mammogram 3 months back on schedule 4. Follow-up after bilateral mammogram CC: Dr. Hill
== END ==
LOC: WWCWWP 16:10
PROVIDERS: ATTEND Surgery
DX: N60.12 Diffuse cystic mastopathy of left breast (principal); N64.89 Other specified disorders of breast

== ENCOUNTER → 2020-11-26 | Outpatient (CLI) | payer BC ==
--- NOTE | 2020-11-28 10:09 | MM ---
Reason for exam: screening (asymptomatic). Last mammogram was performed 3 months ago. History: Patient had first child at age 30. Physical Findings: A clinical breast exam by your physician is recommended on an annual basis and results should be correlated with mammographic findings. MG 3D Screening Mammo W/Cad Bilateral CC and MLO view(s) were taken. XCCL view(s) were taken of the left breast. Prior study comparison: August 24, 2020, right breast MG 3d diag mammo w/cad RT. November 25, 2019, bilateral MG 3d diag mammo w/cad [facility]. September 17, 2018, mammogram. The breast tissue is heterogeneously dense. This may lower the sensitivity of mammography. Post surgical changes right breast. No significant changes when compared with prior studies. ASSESSMENT: Negative, BI-RAD 1 RECOMMENDATION: Routine screening mammogram of both breasts in 1 year.
== END | disposition home or self-care (01) ==
LOC: RADMAMWWP 15:46
PROVIDERS: ATTEND Surgery
DX: Z12.31 Encounter for screening mammogram for malignant neoplasm of breast (principal)
CPT/HCPCS: 77063; 77067

== ENCOUNTER → 2023-04-03 | Outpatient (CLI) | payer OTHER ==
--- NOTE | 2023-04-03 12:36 | CT ---
EXAMINATION TYPE: CT abdomen pelvis w con DATE OF EXAM: 04/03/2023 COMPARISON: 10/15/2014 HISTORY: 42-year-old female right sided abdominal pain TECHNIQUE: Contiguous axial scanning of the abdomen and pelvis following administration of 100 ml Iso irwin 300 IV contrast. Delayed images through the kidneys and coronal/sagittal reconstructions perform ed. CT DLP: 1503 mGycm Automated exposure control for dose reduction was used. FINDINGS: Heart is normal size without pericardial effusion. Lung bases clear without pleural effusio n. Unchanged small 8mm cyst central posterior right liver lobe. Otherwise, no focal liver lesion. Common bile duct measuring 8 mm in caliber, likely due to the postcholecystectomy status. Normal distal tap ering. Adrenal glands, kidneys, and pancreas within normal limits. Spleen enlarged at 15.7 cm, unchanged from 10/15/2014. Postsurgical change of the GE junction relating to Zoila-en-Y gastric bypass. No dilated small bowel or free air. Numerous mesenteric lymph nodes are present throughout, measuring up to 1 cm, likely reactive/post in flammatory. Mild to moderate stool burden. No pericolonic inflammatory change. Bladder urine distended. Uterus anteverted. Both ovaries are visualized. 2.9 cm dominant follicle o r functional cyst of the left ovary. Mild cul-de-sac free fluid likely physiologic. No pelvic lymphad enopathy seen. Bones: Moderate degenerative disc disease L2-L3 and L5-S1. IMPRESSION: 1. STATUS POST ZOILA-EN-Y GASTRIC BYPASS WITH UNCOMPLICATED APPEARANCE. 2. UNCHANGED SPLENOMEGALY AT 15.7 CM. 3. NUMEROUS MESENTERIC LYMPH NODES THROUGHOUT THE ABDOMEN MEASURING UP TO 1 CM, LIKELY REACTIVE/POST INFLAMMATORY. CONSIDER A MESENTERIC ADENITIS. 4. A 2.9 cm dominant follicle or functional cyst of the left ovary. Mild cul-de-sac free fluid likely physiologic.
== END | disposition home or self-care (01) ==
LOC: RADCTMAIN 10:22
PROVIDERS: ATTEND Internal Medicine
DX: N83.292 Other ovarian cyst, left side (principal); R59.0 Localized enlarged lymph nodes; R16.1 Splenomegaly, not elsewhere classified; Z98.84 Bariatric surgery status
CPT/HCPCS: 74177; Q9967

== ENCOUNTER → 2023-07-10 | Outpatient (CLI) | payer OTHER ==
[2023-07-10 20:19] LABS: ALT 57 U/L (8-44); AST 42 U/L (13-35); Albumin 4.3 g/dL (3.8-4.9); Albumin/Globulin Ratio 1.87 Ratio (1.60-3.17); Alkaline Phosphatase 76 U/L (41-126); BUN/Creat Ratio 21.17 Ratio (12.00-20.00); Blood Urea Nitrogen 12.7 mg/dL (9.0-27.0); Calcium 8.7 mg/dL (8.7-10.3); Carbon Dioxide 24.1 mmol/L (21.6-31.8); Chloride 105 mmol/L (96-109); Globulin 2.3 g/dL (1.6-3.3); Glucose 99 mg/dL (70-110); Sodium 138 mmol/L (135-145); Total Bilirubin 0.4 mg/dL (0.3-1.2); Total Protein 6.6 g/dL (6.2-8.2)
== END | disposition home or self-care (01) ==
LOC: LABWHC1 11:57
PROVIDERS: ATTEND Nurse Practitioner Family
DX: R16.2 Hepatomegaly with splenomegaly, not elsewhere classified (principal)
CPT/HCPCS: 36415; 80053; 81596

== ENCOUNTER → 2024-06-24 | Outpatient (CLI) | payer OTHER ==
--- NOTE | 2024-06-24 14:34 | MM ---
Reason for Exam: Screening (asymptomatic). Last mammogram was performed 2 year(s) and 1 month(s) ago. Patient History: Menarche at age 10. First Full-Term at age 30. Late child-bearing (after 30). 2020, Lumpectomy on the Right side. Last menstrual period: 02/14/2024 Risk Values: Alma 5 year model risk: 1.2%. NCI Lifetime model risk: 14.3%. Prior Study Comparison: 08/24/2020 Right Diagnostic Mammogram, [facility]. 11/26/2020 Bilateral Screening Mammogram, [facility]. 05/05/2022 Bilateral MG 3D screening mammo w/cad, [facility]. Tissue Density: The breasts are heterogeneously dense, which may obscure small masses. Findings: Analyzed By CAD. There is no suspicious group of microcalcifications or new suspicious mass in either breast. Overall Assessment: Benign, BI-RAD 2 Management: Screening Mammogram of both breasts in 1 year. . Patient should continue monthly self-breast exams. A clinical breast exam by your physician is recommended on an annual basis. This exam should not preclude additional follow-up of suspicious palpable abnormalities. Note on Alma scores and lifetime risk: 1. A Alma score greater than 3% is considered moderate risk. If this is the case, consider specialist referral to assess eligibility for a risk reducing agent. 2. If overall lifetime risk for the development of breast cancer is 20% or higher, the patient may qualify for future screening with alternating mammogram and breast MRI. [facility], , 06/24/2024 2:31 PM. Electronically signed and approved by: Elías Delgado M.D. Radiolog[facility]
== END | disposition home or self-care (01) ==
LOC: RADMAMWWP 13:31
PROVIDERS: ATTEND Internal Medicine
DX: Z12.31 Encounter for screening mammogram for malignant neoplasm of breast (principal); R92.333 Mammographic heterogeneous density, bilateral breasts
CPT/HCPCS: 77063; 77067